=== PATIENT | female | born 1965 | race Asian ===

== ENCOUNTER 2021-04-23 09:36 | Day surgery (SDC) | payer BC ==
[2021-04-20 19:41] VITALS: BMI 25.7
[2021-04-23] MEDS ORDERED: PHENYLEPHRINE 2.5% OPHTH SOLN 15 ML BOTTLE ONE (10:15)
[2021-04-23] MEDS ORDERED: TROPICAMIDE 1% OPHTH SOLN 15 ML BOTTLE ONE (10:15)
[2021-04-23] MEDS ORDERED: BETAXOLOL HCL 0.25% OPHTHALMIC 10 ML DROPSBTL ONE (10:15)
[2021-04-23] MEDS ORDERED: OFLOXACIN 0.3% OPHTHALMIC SOLUTION 5 ML BOTTLE ONE (10:15)
[2021-04-23] MEDS ORDERED: CYCLOPENTOLATE HCL 1% OPHTH SOLN 2 ML BOTTLE ONE (10:15)
[2021-04-23] MEDS ORDERED: EPI-SHUGARCAINE (EPINEPHRINE 0.025% & LIDOCAINE-PF 0.75%) 4ML ONE (10:15)
[2021-04-23] MEDS ORDERED: BACITRACIN/POLYMYXIN OPH OINT 3.5 GM TUBE ONE (10:15)
[2021-04-23] MEDS ORDERED: KETOROLAC TROMETHAMINE 0.5% EYE DROP 1 DROP DROPS ONE (10:15)
[2021-04-23] MEDS ORDERED: BSS (NA/CA/MG/K) BALANCED SALT SOLUTION OPHTH SOLN 15 ML BOTTLE ONE (10:16)
[2021-04-23] MEDS ORDERED: TETRACAINE 0.5% OPHTH SOLN 2 ML BOTTLE ONE (10:16)
[2021-04-23] MEDS ORDERED: POVIDONE-IODINE 5% OPHTHALMIC PREP 30 ML SOLUTION ONE (10:16)
[2021-04-23] MEDS ORDERED: ACETYLCHOLINE 1:100 INTRA-OCUL 20 MG/2 ML KIT ONE (10:16)
[2021-04-23] MEDS ORDERED: NEO/POLYMYX B SULF/DEXAMETH OPHTHALMIC 5ML BOTTLE ONE (10:16)
[2021-04-23] MEDS: TROPICAMIDE 1% OPHTH SOLN 15 ML BOTTLE OD SCH ×3 (10:20→10:30)
[2021-04-23] MEDS: PHENYLEPHRINE 2.5% OPHTH SOLN 15 ML BOTTLE OD SCH ×3 (10:20→10:30)
[2021-04-23] MEDS: CYCLOPENTOLATE HCL 1% OPHTH SOLN 2 ML BOTTLE OD SCH ×3 (10:20→10:30)
[2021-04-23] MEDS: OFLOXACIN 0.3% OPHTHALMIC SOLUTION 5 ML BOTTLE OD SCH ×3 (10:20→10:30)
[2021-04-23] MEDS: KETOROLAC TROMETHAMINE 0.5% EYE DROP 1 DROP DROPS OD SCH ×3 (10:20→10:30)
[2021-04-23] MEDS ORDERED: MIDAZOLAM HCL 2 MG/2 ML SINGLE DOSE VIAL ONE (11:02)
[2021-04-23] MEDS ORDERED: ACETAMINOPHEN 325 MG TABLET (FP) PO PRN (11:53)
[2021-04-23 12:10] VITALS: PULSE 78; TEMP 98.3
[2021-04-23 12:28] VITALS: BP 152/76
== END 2021-04-23 12:40 | disposition home or self-care (01) ==
LOC: FASU 09:36
PROVIDERS: ATTEND Ophthalmology
PROC: 08RJ3JZ Replacement of Right Lens with Synthetic Substitute, Percutaneous Approach (ICD-10-PCS; principal; 2021-04-23 11:17)
DX: H25.11 Age-related nuclear cataract, right eye (principal)